=== PATIENT | female | born 1935 | race Hispanic/Latino ===

== ENCOUNTER 2018-11-09 19:44 | Emergency (ER) | payer BC, MEDICARE ==
[2018-11-09 21:01] LABS: #Eosinphils 0.3 thou/uL (0.0-0.7); #Lymphocytes 1.7 thou/uL (1.20-3.40); #Monocytes 0.5 thou/uL (0.11-0.59); #Neutrophils 4.7 thou/uL (1.40-6.50); %Basophils 0.3 % (0.0-1.0); %Eosinophils 4.5 % (0.0-10.0); %Neutrophils 65.2 % (42.0-75.0); Hemoglobin 13.6 g/dL (12.0-16.0); Mean Corpuscular HGB CONC 32.8 g/dL (32.0-36.0); Mean Corpuscular Hemoglobin 30.5 pg (27.0-31.0); Mean Corpuscular Volume 92.9 fL (78.0-98.0); Mean Platelet Volume 8.4 fL (7.4-10.4); Platelet Count 210 thou/uL (130-400); RBC Distribution Width 12.3 % (11.5-14.5); Red Blood Cell (RBC) Count 4.45 mill/uL (4.20-5.40); White Blood Cell (WBC) Count 7.3 thou/uL (4.8-10.8)
[2018-11-09 21:07] LABS: ALT (SGPT) 15 U/L (8-55); AST (SGOT) 18 U/L (5-34); Albumin 3.9 g/dL (3.4-4.8); Alkaline Phosphatase 105 U/L (40-150); Anion Gap 9 mmol/L (10-20); BUN (Urea Nitrogen) 20 mg/dL (9.8-20.1); Bilirubin, Total 0.3 mg/dL (0.2-1.2); Calc. Creatinine Clearance 0 mL/min (70-130); Calcium 9.5 mg/dL (7.8-10.44); Carbon Dioxide 27 mmol/L (23-31); Chloride 104 mmol/L (98-107); Estimated GFR-MDRD 51; Globulin 3.1 g/dL (2.4-3.5); Glucose 154 mg/dL (83-110); Potassium 4.3 mmol/L (3.5-5.1); Sodium 136 mmol/L (136-145)
--- NOTE | 2018-11-09 21:48 | RAD ---
PA AND LATERAL CHEST X-RAY 11/09/18 HISTORY: Patient having difficulty breathing. Dyspnea. COMPARISON: 04/03/13. FINDINGS: The cardiac silhouette and pulmonary vasculature are within normal limits. The lungs are clear. Surgi riri clips overlie the right upper quadrant. Degenerative changes are present in the spine. Vascular c alcifications again noted in the thoracic aorta. There has been no interval change compared to prio r study given differences in technique. IMPRESSION: No acute cardiopulmonary process. POS: [facility]
--- NOTE | 2018-11-12 12:15 | EKG ---
Test Reason : Blood Pressure : / mmHG Vent. Rate : 074 BPM Atrial Rate : 074 BPM P-R Int : 224 ms QRS Dur : 070 ms QT Int : 406 ms P-R-T Axes : 000 040 068 degrees QTc Int : 450 ms Sinus rhythm with 1st degree A-V block Low voltage QRS Nonspecific ST abnormality Abnormal ECG Confirmed by KUNAL BAEZ DO ([id number]), field map editor MARJORIE CELESTIN ([id number]) on 11/12/2018 12:15:14 PM Referred By: Confirmed By:KUNAL BAEZ DO
== END 2018-11-09 22:35 | disposition home or self-care (01) ==
LOC: ERS 19:44
DX: R06.02 Shortness of breath (principal); I10 Essential (primary) hypertension; E11.9 Type 2 diabetes mellitus without complications; E78.5 Hyperlipidemia, unspecified; Z79.899 Other long term (current) drug therapy
CPT/HCPCS: 36415; 71046; 80053; 83880; 84484; 85025; 93005

== ENCOUNTER 2018-12-21 20:02 | Emergency (ER) | payer MEDICARE ==
[2018-12-21] MEDS ORDERED: HYDROcodone/Acetaminophen 5/325 mg Tablet ONE (22:17)
--- NOTE | 2018-12-21 22:31 | RAD ---
THREE VIEWS RIGHT SHOULDER: 12/21/18 COMPARISON: None. HISTORY: Right arm pain for one week. FINDINGS: There is mild degenerative change of the right acromioclavicular joint. No acute fracture or dislocat ion. IMPRESSION: No acute fracture or evidence of dislocation. POS: OFF
== END 2018-12-21 23:25 | disposition home or self-care (01) ==
LOC: ERS 20:02
DX: M79.601 Pain in right arm (principal); R73.03 Prediabetes; E78.5 Hyperlipidemia, unspecified; M10.9 Gout, unspecified; Z79.899 Other long term (current) drug therapy

== ENCOUNTER 2019-11-27 03:26 | Inpatient (IN) | payer BC, MEDICARE, SELFPAY ==
[2019-11-27] MEDS ORDERED: Acetaminophen 325 MG TAB PO PRN (03:51)
[2019-11-27] MEDS ORDERED: Nitroglycerin 0.4 MG TAB (25 Tab Bottle) PO PRN (03:51)
--- NOTE | 2019-11-27 05:06 | HP ---
CHIEF COMPLAINT: Shortness of breath. HISTORY OF PRESENT ILLNESS: Ms. Ulloa is an 84-year-old female with past medical history of hypertension; hyperlipidemia; ?asthma; and diabetes, type 2, presented to an outside emergency room with shortness of breath, started this evening before bed. Denies fevers, chills, or cough. She said the shortness of breath is worse with lying flat. She has also some chest discomfort. In the emergency room, patient received breathing treatments without any improvement. Blood pressure was elevated to 178/84. Chest x-ray was unremarkable. EKG showed new minor ST depression in I and aVL. Initial troponin was negative. Patient is being transferred here for further management. Currently, patient is awaiting a CTA of the chest. PAST MEDICAL HISTORY: 1. Diabetes, borderline. 2. Hyperlipidemia. 3. Hypertension. 4. Gout. PAST SURGICAL HISTORY: 1. Cholecystectomy. 2. Tubal ligation. 3. Hernia repair. SOCIAL HISTORY: Denies smoking, alcohol drinking, or drug abuse. FAMILY HISTORY: Reviewed and noncontributory. HOME MEDICATIONS: Please see home medication reconciliation form for updated medications. ALLERGIES: NO KNOWN ALLERGIES. REVIEW OF SYSTEMS: Review of 14 systems negative, except what is mentioned in history of present illness. PHYSICAL EXAMINATION: GENERAL: Patient is awake and alert, in mild distress. VITAL SIGNS: Blood pressure is 190/84, pulse is 100, respiratory rate is 23, temperature is 98.7, and pulse oximetry is 99% on room air. HEAD: Normocephalic and atraumatic. NECK: Supple. No JVD. CHEST: Decreased air entry bilaterally. HEART: S1, S2. Regular, tachycardic. ABDOMEN: Obese, soft. Bowel sounds present. NEUROLOGIC: Awake, alert, and oriented x3. PSYCH: Normal mood. EXTREMITIES: Positive for edema. No clubbing or cyanosis. GENITOURINARY: No suprapubic tenderness. No flank tenderness. LABORATORIES: Done at an outside facility. Sodium 141, potassium 4.1, BUN 16, creatinine 0.9, and glucose 142. WBC 7.4, hemoglobin 13.6, and platelets 204. EKG showed normal sinus rhythm with [address] depression in I and aVL. Chest x-ray reported as no acute finding. ASSESSMENT: 1. Acute shortness of breath. 2. Chest discomfort. 3. Hypertensive urgency. 4. Hyperlipidemia. 5. Asthma. PLAN: 1. Admit. 2. Tele monitoring. 3. CT of the chest is being done, to follow the results. 4. Serial troponins. 5. 2D echo. 6. Reconcile home medications. 7. DVT prophylaxis with heparin. 8. Expected length of stay at least one midnight if patient is stable and further workup negative. Job ID: [id number]
[2019-11-27 05:58] VITALS: BMI 46.5
[2019-11-27 06:43] LABS: Troponin I Less than 0.010 ng/mL (< 0.028)
[2019-11-27] MEDS ORDERED: Carvedilol 3.125 MG TAB PO SCH (08:00)
[2019-11-27] MEDS: Famotidine 20 MG TAB PO SCH ×2 (08:30→21:06)
[2019-11-27] MEDS: Aspirin 325 mg Enteric Coated Tablet PO SCH (08:30)
[2019-11-27] MEDS: Heparin 5,000 UNITS/ML VIAL SC SCH ×2 (08:31→21:06)
[2019-11-27] MEDS: Lisinopril 20 MG TAB PO SCH (08:31)
[2019-11-27] MEDS ORDERED: Furosemide 40 MG TAB PO SCH (09:00)
[2019-11-27] MEDS ORDERED: FLU VACC TS2019-20(65YR UP)/PF 180 MCG/0.5 ML SYRINGE IM ONE (09:00)
[2019-11-27] MEDS ORDERED: Prevnar 13-Val Conj/PF 0.5 ML SYRINGE IM ONE (09:00)
[2019-11-27] MEDS ORDERED: Allopurinol 100 MG TAB PO SCH (09:30)
[2019-11-27 11:25] LABS: Troponin I 0.023 ng/mL (< 0.028)
[2019-11-27] MEDS ORDERED: Insulin Regular 300 UNITS/3 ML VIAL SC PRN (11:57)
[2019-11-27] MEDS ORDERED: Dextrose 50% Abboject 50 ML SYRINGE SLOW IVP PRN (11:57)
[2019-11-27] MEDS ORDERED: Dextrose 5% in Water 1,000 ML IV PRN (11:57)
--- NOTE | 2019-11-27 12:03 | ULT ---
EXAM: Bilateral lower extremity venous Doppler HISTORY: Bilateral lower extremity edema. FINDINGS: Grayscale, color-flow, Doppler evaluation, spectral analysis of the bilateral lower extremities venou s structures is performed with 2-D imaging. The bilateral common femoral, superficial femoral, popliteal, posterior tibial, proximal greater saphenous and profunda femoral veins are imaged. There is normal luminal compressibility, flow, and augmentation in the visualized deep venous structu res of the bilateral lower extremities. IMPRESSION: No evidence of a deep vein thrombosis in the visualized deep venous structures bilateral lower extrem ities.
[2019-11-27] MEDS: Insulin Regular 300 UNITS/3 ML VIAL SC PRN (12:35)
[2019-11-27] MEDS: Furosemide 20 MG/2 ML VIAL SLOW IVP SCH (13:08)
[2019-11-28 04:17] LABS: #Eosinphils 0.3 thou/uL (0.0-0.7); #Lymphocytes 1.9 thou/uL (1.20-3.40); #Monocytes 0.6 thou/uL (0.11-0.59); #Neutrophils 4.8 thou/uL (1.40-6.50); %Basophils 0.3 % (0.0-1.0); %Eosinophils 3.9 % (0.0-10.0); %Monocytes 7.8 % (0.0-10.0); Hemoglobin 13.6 g/dL (12.0-16.0); Mean Corpuscular HGB CONC 35.1 g/dL (32.0-36.0); Mean Corpuscular Hemoglobin 32.5 pg (27.0-31.0); Mean Corpuscular Volume 92.7 fL (78.0-98.0); Mean Platelet Volume 8.3 fL (7.4-10.4); Platelet Count 211 thou/uL (130-400); RBC Distribution Width 12.4 % (11.5-14.5); Red Blood Cell (RBC) Count 4.18 mill/uL (4.20-5.40); White Blood Cell (WBC) Count 7.6 thou/uL (4.8-10.8)
[2019-11-28 04:47] LABS: ALT (SGPT) 14 U/L (8-55); AST (SGOT) 19 U/L (5-34); Albumin 3.9 g/dL (3.4-4.8); Alkaline Phosphatase 82 U/L (40-110); Anion Gap 15 mmol/L (10-20); BUN (Urea Nitrogen) 16 mg/dL (9.8-20.1); Bilirubin, Total 0.5 mg/dL (0.2-1.2); Calc. Creatinine Clearance 63 mL/min (70-130); Calcium 9.7 mg/dL (7.8-10.44); Carbon Dioxide 24 mmol/L (23-31); Chloride 103 mmol/L (98-107); Estimated GFR-MDRD 46; Globulin 3.1 g/dL (2.4-3.5); Glucose 116 mg/dL (83-110); Magnesium 2.1 mg/dL (1.6-2.6); Potassium 3.9 mmol/L (3.5-5.1); Sodium 138 mmol/L (136-145)
[2019-11-28] MEDS: Furosemide 20 MG/2 ML VIAL SLOW IVP SCH (05:38)
[2019-11-28] MEDS: Aspirin 325 mg Enteric Coated Tablet PO SCH (08:41)
[2019-11-28] MEDS: Lisinopril 20 MG TAB PO SCH (08:42)
[2019-11-28] MEDS: Famotidine 20 MG TAB PO SCH (08:42)
[2019-11-28] MEDS: Heparin 5,000 UNITS/ML VIAL SC SCH (08:44)
[2019-11-28] MEDS ORDERED: Allopurinol 100 MG TAB PO SCH (09:00)
--- NOTE | 2019-11-28 10:56 | CON ---
DATE OF CONSULTATION: 11/28/2019 INDICATIONS FOR CONSULTATION: An 84-year-old female with history of shortness of breath. She was admitted after having increasing shortness of breath, she had been outside, working on the yard. She has recently underwent a cardiac catheterization back in 05/2019 in [place], where she resides about half of the year. This showed some 10% to 20% stenosis in the couple of vessels, but no flow-limiting disease. No significant coronary artery disease was noted. She had normal left ventricular systolic function. The echocardiogram also showed normal function at that time. She had a repeat echocardiogram here, which showed a normal ejection fraction, but evidence of grade 1/3 diastolic dysfunction, but otherwise unremarkable echocardiogram. She does have severe morbid obesity, is short statured female. Otherwise, she has had no previous significant cardiac history that we are aware of. Her EKG shows borderline first-degree heart block, but no ischemic changes. Enzymes are negative. PHYSICAL EXAMINATION: GENERAL: A morbidly obese female who is in no acute distress. She is alert. She is oriented. VITAL SIGNS: Stable. HEENT: Unremarkable. CHEST: Clear to auscultation. There were no rales, rhonchi, or wheezing heard. HEART: She has a regular rate and rhythm. There were no significant murmurs, heaves, thrills, bruits, or rubs. ABDOMEN: Morbid obesity. I cannot palpate any masses or tenderness. EXTREMITIES: 1+ lower extremity edema. NEUROLOGIC: She is fully intact. IMPRESSION: 1. SOB/MEADOWS-Recent cath without significant CAD, laboratory data does not show any evidence of acute myocardial infarction. At this time, I believe that she is a reasonable candidate for discharge to home. She can follow up with her primary spanner operator. If she has any further problems, she can be returned to us, but from a cardiac standpoint, she has minimal or mild coronary artery disease. She may have underlying chronic obstructive pulmonary disease or asthma and she has been on inhaler for quite some time. We will continue to monitor this. She may need to see a shipping manager. Otherwise, she has remained stable. 2. Nonspecific EKG changes, but there are no acute changes noted. There is no indication that she has any significant coronary artery disease. 3. Diastolic dysfunction. She is to continue to monitor her blood pressure carefully to avoid further hypertension. This can be also followed on an outpatient basis. 4. Hypercholesterolemia. She has been on statin medications for quite some time. We will continue this medication. I have encouraged her to try to get some exercise if at all possible. From a cardiology standpoint, she could be discharged to home and further evaluation could be undertaken as an outpatient if necessary. Job ID: [id number] VALERIO
[2019-11-28 10:57] VITALS: TEMP 98
[2019-11-28] MEDS: Insulin Regular 300 UNITS/3 ML VIAL SC PRN (10:57)
--- NOTE | 2019-11-28 11:48 | CON ---
DATE OF CONSULTATION: PRIMARY CARE PHYSICIAN: Kim Conklin MD REASON FOR CARDIOLOGY CONSULTATION: Shortness of breath and congestive heart failure. HISTORY OF PRESENT ILLNESS: Ms. Ulloa is a very present 84-year-old female with a past medical history of hypertension, possible asthma, borderline diabetes, hyperlipidemia, possibly gout, she just came back from [place], where she had a property. She spends time in the [place] during the summertime and came back to the [facility] around the wintertime. In May of last year, she had a followup with manpower development specialist in [place] for hypertension urgency. At that time, she was recommend to have a stress test. While she was having stress test, she started having chest pain and the patient's stress test was stopped and she underwent a cardiac catheterization instead. The patient's cardiac catheterization shows 20% stenosis in the LAD and 20% in RCA with ejection fraction of 70% to 80%. Also, the patient had an echocardiogram done with an EF of 55% to 60%, with 35% to 40% RVSP. Since then, she was doing relatively well until Thursday night when she started having shortness of breath for a couple of hours with mild chest tightness. Due to the reason, the patient went to the urgent care facility, the patient was transferred to the emergency department due to the possible abnormal EKG. She also has possible diastolic heart failure with 3+ bilateral lower extremity edema. The patient had received Lasix IV, and according to the patient, the patient's lower extremity looks more stable and the patient denies any shortness of breath since the patient in the hospital. At this moment, the patient denied chest pain, heaviness, tightness, shortness of breath, dizziness, or any other cardiac complaints. PAST MEDICAL HISTORY: Borderline diabetes, hypertension, hyperlipidemia, and gout. PAST SURGICAL HISTORY: Cardiac catheterization in May 2019 with 20% stenosis in the LAD and RCA, cholecystectomy, tubal ligation, and hernia repair. FAMILY HISTORY: Noncontributory. SOCIAL HISTORY: She is . She has 5 children, who are living well. She denies EtOH, tobacco, or illicit drug abuse. She does not exercise. She drinks at least 1 cup of coffee or one glass of decaf tea. ALLERGIES: NO KNOWN DRUG ALLERGIES. HOME MEDICATIONS: 1. Lisinopril 40 mg once a day. 2. Lasix 40 mg once a day. 3. Allopurinol 100 mg once a day. 4. Simvastatin 20 mg once a day. 5. Metoprolol succinate 100 mg once a day. REVIEW OF SYSTEMS: 12-point review of systems is negative unless otherwise mentioned in HPI. The patient has chronic heartburn, however, she does not take any antacid medication. The patient has chronic diarrhea. The patient has chronic shortness of breath for 10 years. She has some inhaler at home, but she cannot remember the name. PHYSICAL EXAMINATION: VITAL SIGNS: Blood pressure 132/65, temperature 97.5, pulse is 65 and sinus rhythm, respiratory rate 18, O2 saturation 97% on room air. GENERAL: The patient is alert and oriented x4, not in acute distress. HEAD: Normocephalic, atraumatic. EYES: Extraocular muscle movement intact. ENT AND MOUTH: Oral and nasal mucosa moist without lesion. NECK: Supple. Normal range of motion. No JVD. No bruits or thrill noted at the carotid artery area. RESPIRATORY: Clear to auscultate bilaterally, but really diminished at the bases. No wheezing, rales, or rhonchi noted. CARDIOVASCULAR: Regular rate and rhythm. Normal S1 and S2. There is no S3 or S4. No significant murmurs, hives, or thrills noted. 2+ pulses in bilateral upper and lower extremities. There is 1 to 2+ pitting edema in bilateral sands area, but no edema around the ankle or bilateral foot. ABDOMEN: Soft, nontender. No mass palpated. Bowel sounds are present. MUSCULOSKELETAL: The patient able to move all extremities without any difficulty. SKIN: Warm and dry. No lesion, rash, or erythema noted. NEUROLOGIC: The patient is alert and oriented x4. Nonfocal. PSYCHIATRIC: The patient's mood is appropriate. LABORATORY DATA: WBC 7.6, hemoglobin 13.6, hematocrit 38.7, and platelets 211. Sodium 138, potassium 3.9, BUN 16, creatinine 1.13, estimated GFR 46, glucose 116, calcium 9.7, magnesium 2.1, AST 19, ALT 14. Troponin is negative x2 and 0.023. . The patient had an echocardiogram done here yesterday with EF 60% to 65%, grade 1 diastolic dysfunction, mild mitral valve regurgitation, and mild tricuspid regurgitation. ASSESSMENT AND PLAN: 1. chest tightness, possibly the patient's symptom is from shortness of breath. The patient's cardiac catheterization in May 2019 showed 20% stenosis in RCA and LAD. The patient's ejection fraction is stable at this moment. The patient was recommended to follow up with building serviceman for chronic shortness of breath. 2. Acute on diastolic heart failure. The patient's condition is improved with Lasix 20 mg twice a day, which can be changed to 40 mg once a day p.o. and the patient may able to discharge. The patient is on metoprolol succinate 100 mg once a day. Due to shortness of breath, we might like to change to the carvedilol or any other day beta-leila for shortness of breath and also congestive heart failure management if patient agreed. The patient is also on lisinopril 40 mg once a day and Lasix 40 mg once a day. 3. Hypertension. The patient's blood pressure is stable with current medication. 4. Hyperlipidemia. She is on simvastatin. 5. Borderline diabetes, managed by primary care doctor. 6. Obesity. The patient was recommend to watch her diet and regular exercise. Thank you very much for Cardiology Service to participate in the care of this patient. We will follow along the patient's care team and make further recommendations as appropriate. Job ID: [id number]
[2019-11-28 12:31] VITALS: BP 108/68
--- NOTE | 2019-11-28 17:13 | DIS ---
DATE OF ADMISSION: 11/27/2019 DATE OF DISCHARGE: 11/28/2019 DISCHARGE DISPOSITION: Home. FOLLOWUP: 1. Follow up with primary care physician, Shanique Hatfield in 1 week. 2. Follow up with Cardiology, Dr. Dashawn Conklin as scheduled. ALLERGIES: NO KNOWN DRUG ALLERGIES. DISCHARGE MEDICATION: Same as admission medication. The patient was seen and examined on the day of discharge. Denies any new complaints. Shortness of breath has significantly improved. BRIEF HOSPITAL COURSE: The patient is an 84-year-old female with hypertension, hyperlipidemia, and diabetes mellitus type 2, who presented to the emergency room on November 27, 2019 with shortness of breath along with chest discomfort. Please refer to the history and physical dated November 27, [address] Lebron for details. The patient was admitted to the hospital with a diagnosis of chest discomfort along with shortness of breath. She was monitored on the telemetry unit. An echocardiogram was obtained that showed ejection fraction of 60% to 65% with diastolic dysfunction, mild mitral regurgitation and mild tricuspid regurgitation. Her symptoms improved with IV diuretics. Bilateral lower extremity had significant swelling. Doppler was obtained which was negative for DVT. Records were obtained from [place] that showed mild coronary artery disease. The patient was evaluated by Cardiology, Dr. Conklin. Dr. Conklin will follow up the patient as outpatient. She was also advised to take an 81 mg aspirin on the daily basis. The patient has been cleared by Cardiology for discharge. Please note, the patient's condition improved earlier than expected. FINAL DIAGNOSES: 1. Chest discomfort secondary to acute on chronic diastolic heart failure exacerbation. 2. Hypertension with hypertensive urgency on admission, improved. 3. Hyperlipidemia. 4. Mild intermittent asthma. 5. Gout. 6. Mild coronary artery disease. 7. Morbid obesity with a BMI of 46.5. 8. Suspected sleep apnea. 9. Impaired glucose tolerance. 10. Chronic kidney disease, stage 3. The patient understands the plan of care. Job ID: [id number]
== END 2019-11-28 12:59 | disposition home or self-care (01) | DRG 291 ==
LOC: ERS 03:26 → 2NO 05:49
PROVIDERS: ADMIT Internal Medicine; ATTEND Internal Medicine
DX: I13.0 Hypertensive heart and chronic kidney disease with heart failure and stage 1 through stage 4 chronic kidney disease, or unspecified chronic kidney disease (principal); I50.33 Acute on chronic diastolic (congestive) heart failure; Z68.42 Body mass index [BMI] 45.0-49.9, adult; N18.3 Chronic kidney disease, stage 3 (moderate); I16.0 Hypertensive urgency; E78.5 Hyperlipidemia, unspecified; J45.20 Mild intermittent asthma, uncomplicated; M10.9 Gout, unspecified; I25.10 Atherosclerotic heart disease of native coronary artery without angina pectoris; E66.01 Morbid (severe) obesity due to excess calories; G47.30 Sleep apnea, unspecified; R73.02 Impaired glucose tolerance (oral); Z90.49 Acquired absence of other specified parts of digestive tract; Z98.51 Tubal ligation status; Z98.890 Other specified postprocedural states; R73.03 Prediabetes; E78.00 Pure hypercholesterolemia, unspecified
CPT/HCPCS: 36415; 36416; 80053; 83735; 83880; 84484; 85025; 90471; 90662; 90670; 93306; 93970; 94760; G0008; G0009; J1644; J1815; J1940

== ENCOUNTER 2020-02-02 11:06 | Outpatient (CLI) | payer MEDICARE, BC ==
--- NOTE | 2020-02-02 11:39 | RAD ---
RADIOGRAPH CHEST 2 VIEWS: DATE: 02/02/2020 HISTORY: 84-year-old female with dyspnea FINDINGS: There is no airspace density, pulmonary edema, pleural effusion, pneumothorax, or cardiomegaly. IMPRESSION: No acute cardiopulmonary findings.
== END 2020-02-02 11:07 | disposition home or self-care (01) ==
LOC: BICRAD 11:06
PROVIDERS: ATTEND Internal Medicine Critical Care Medicine
DX: R06.00 Dyspnea, unspecified (principal)
CPT/HCPCS: 71046

== ENCOUNTER 2020-03-09 08:49 | Outpatient (CLI) | payer BC, MEDICARE ==
--- NOTE | 2020-03-09 09:45 | MMO ---
Bilateral MAMMO Bilat Diag [facility]. CLINICAL HISTORY: Patient is 85 years old and is seen for diagnostic exam and palpable abnormality in the right breast. The patient has no family history of breast cancer. The patient has no personal history of cancer. The patient has a history of right Excisional Biopsy - benign. VIEWS: The views performed were: bilateral craniocaudal with tomosynthesis; bilateral mediolateral oblique with tomosynthesis; and bilateral mediolateral with tomosynthesis. FILMS COMPARED: The present examination has been compared to prior imaging studies performed at [facility] on 03/09/2020, and at [facility] on 05/31/2014, 07/02/2015 and 06/30/2017. This study has been interpreted with the assistance of computer-aided detection. MAMMOGRAM FINDINGS: The breasts are almost entirely fat. No mammographic or sonograhic abnormality is seen at the site of palpable concern in the right breast. There are no suspicious masses, suspicious calcifications, or new areas of architectural distortion. IMPRESSION: THERE IS NO MAMMOGRAPHIC EVIDENCE OF MALIGNANCY. A ROUTINE FOLLOW-UP MAMMOGRAM IN 1 YEAR IS RECOMMENDED. THE RESULTS OF THIS EXAM WERE SENT TO THE PATIENT. ACR BI-RADS Category 2 - Benign finding MAMMOGRAPHY NOTE: 1. A negative mammogram report should not delay a biopsy if a dominant of clinically suspicious mass is present. 2. Approximately 10% to 15% of breast cancers are not detected by mammography. 3. Adenosis and dense breasts may obscure an underlying neoplasm. Reported by: KRISTEN MORRIS MD Electonically Signed: [id number]
--- NOTE | 2020-03-09 10:33 | ULT ---
LIMITED RIGHT BREAST ULTRASOUND: Date: 03/09/2020 HISTORY: Palpable abnormality at the 12 o'clock position of the right breast with pain as well. FINDINGS: Sonographic evaluation of the region of palpable concern/pain in the 12 o'clock position of the right breast demonstrates no abnormality. Correlation made with mammogram from same date. IMPRESSION: BI-RADS Category 2 - Benign findings. Return to annual mammographic screening.
== END 2020-03-09 08:50 | disposition home or self-care (01) ==
LOC: BICMAMMO 08:49
PROVIDERS: ATTEND Physician Assistant
DX: N64.4 Mastodynia (principal)
CPT/HCPCS: 77066; G0279